=== PATIENT | male | born 1965 | race Native Hawaiian/Other Pacific Islander ===

== ENCOUNTER 2020-04-22 09:11 | Outpatient (CLI) | payer OTHER ==
[2020-04-22 10:29] LABS: POTASSIUM 3.8 mmol/L (3.6-5.2)
== END 2020-04-22 21:50 | disposition home or self-care (01) ==
LOC: LAB 09:11
PROVIDERS: Internal Medicine
DX: E03.9 Hypothyroidism, unspecified (principal); I10 Essential (primary) hypertension; E11.9 Type 2 diabetes mellitus without complications; D86.0 Sarcoidosis of lung
CPT/HCPCS: 80053; 80061; 81000; 82043; 82164; 82570; 83036; 84439; 84443

== ENCOUNTER 2021-03-12 11:47 | Outpatient (CLI) | payer OTHER, BC | END 2021-03-12 20:55 | disposition home or self-care (01) | LOC: LABW 11:47 | PROVIDERS: ATTEND Internal Medicine | DX: E11.9 Type 2 diabetes mellitus without complications (principal) | CPT/HCPCS: 36415; 82947; 84681 ==

== ENCOUNTER 2021-04-06 12:34 | Outpatient (CLI) | payer OTHER, BC | END 2021-04-06 19:36 | disposition home or self-care (01) | LOC: US 12:34 | PROVIDERS: ATTEND Internal Medicine | DX: E11.8 Type 2 diabetes mellitus with unspecified complications (principal) ==

== ENCOUNTER 2022-02-10 15:36 | Outpatient (CLI) | payer OTHER, BC ==
[2022-02-10 16:06] LABS: PLATELET COUNT 185 K/uL (142-355)
[2022-02-10 16:19] LABS: POTASSIUM 4.4 mmol/L (3.6-5.2)
== END 2022-02-10 20:03 | disposition home or self-care (01) ==
LOC: LABW 15:36
PROVIDERS: ATTEND Internal Medicine
DX: Z11.52 Encounter for screening for COVID-19 (principal); R19.7 Diarrhea, unspecified
CPT/HCPCS: 36415; 80053; 82272; 83630; 85027; 87015; 87045; 87206; 87324; 87328; 87329; 87449; 87507; 87635; 87899; U0003

== ENCOUNTER 2022-06-02 10:03 | Outpatient (CLI) | payer OTHER, BC ==
[~2022-06-02] VITALS: Ht 177.8 cm; Wt 104.3 kg
[2022-06-02 10:07] VITALS: BP 122/72; TEMP 97.6
--- NOTE | 2022-06-02 12:16 | NUR ---
PT'S IV FLUSHED WITH 5 CC NS WITHOUT DIFFICULTY. INFUSION STARTED AT THIS TIME.
[2022-06-02 12:57] VITALS: BP 99/71; TEMP 97.7
--- NOTE | 2022-06-02 13:53 | NUR ---
1007 PT AMBULATED TO ROOM 1107 VS OBTAINED. 20G TO RFA X3 ATTEMPTS. FLUSHES WITH 10ML NS. VS OBTAINED. 1230 PT TOLERATED INFUSION WITH NO COMPLAINTS. NO ADVERSE REACTIONS SUSPECTED. 1258 INFISION COMPLETED PT TOLERATED WELL WITH NO ADVERSE REACTIONS. 20G PIV TO RFA DC INTACT SITE CARE PROVIDED. 1310 PT AMBULATED OUT OF FACILITY TO POV IN NO DISTRESS. WILL RETURN IN 14 DAYS FOR SCHEDULED INFUSION.
== END 2022-06-02 19:05 | disposition home or self-care (01) ==
LOC: INF 10:03
PROVIDERS: ATTEND Internal Medicine
DX: M86.271 Subacute osteomyelitis, right ankle and foot (principal)
CPT/HCPCS: 96365; J0875

== ENCOUNTER 2022-06-20 09:29 | Outpatient (CLI) | payer OTHER, BC ==
[~2022-06-20] VITALS: Ht 177.8 cm; Wt 104.3 kg
[2022-06-20 09:33] VITALS: BP 109/65; TEMP 98.2
[2022-06-20 11:12] VITALS: BP 125/78; TEMP 97.5
== END 2022-06-20 18:56 | disposition home or self-care (01) ==
LOC: INF 09:29
PROVIDERS: ATTEND Internal Medicine
DX: M86.271 Subacute osteomyelitis, right ankle and foot (principal)
CPT/HCPCS: 96365; J0875

== ENCOUNTER 2022-07-04 09:02 | Outpatient (CLI) | payer OTHER, BC ==
[~2022-07-04] VITALS: Ht 167.6 cm; Wt 104.3 kg
[2022-07-04 09:15] VITALS: BP 115/69; TEMP 98.4
[2022-07-04 11:29] VITALS: BP 115/72; TEMP 98.2
== END 2022-07-04 19:30 | disposition home or self-care (01) ==
LOC: INF 09:02
PROVIDERS: ATTEND Internal Medicine
DX: M86.271 Subacute osteomyelitis, right ankle and foot (principal); E11.621 Type 2 diabetes mellitus with foot ulcer; L97.513 Non-pressure chronic ulcer of other part of right foot with necrosis of muscle
CPT/HCPCS: 96365; J0875

== ENCOUNTER 2022-07-06 08:17 | Outpatient (CLI) | payer OTHER, BC ==
[~2022-07-06] VITALS: Ht 167.6 cm; Wt 68.0 kg
[2022-07-06 13:30] VITALS: BP 93/54; TEMP 97.8
[2022-07-06 14:58] VITALS: BP 109/55; TEMP 98.2
== END 2022-07-06 23:00 | disposition home or self-care (01) ==
LOC: INF 08:17
PROVIDERS: ATTEND Internal Medicine
DX: M86.271 Subacute osteomyelitis, right ankle and foot (principal); E11.621 Type 2 diabetes mellitus with foot ulcer
CPT/HCPCS: 96365; J0875